=== PATIENT | female | born 1980 | race Caucasian/White ===

== ENCOUNTER 2024-07-28 18:41 | Emergency (ER) | payer MEDICAID ==
[~2024-07-28] VITALS: Ht 165.1 cm; Wt 71.8 kg
[2024-07-28] MEDS ORDERED: LORazepam 2 mg/ml vial IM ONE (19:30)
[2024-07-28 19:53] LABS: BASOPHILS # (AUTO) 0.1 X10'3 (0-0.2); BASOPHILS % (AUTO) 0.3 % (0-1); EOSINOPHILS % (AUTO) 0.2 % (0-6); HEMATOCRIT 39.6 % (35.0-45.0); HEMOGLOBIN 14.1 g/dl (12.0-16.0); LYMPHOCYTES # (AUTO) 1.7 X10'3 (1.1-4.8); LYMPHOCYTES % (AUTO) 8.3 % (21-51); MEAN CORPUSCULAR HEMOGLOBIN 30.8 PG (27.0-31.0); MEAN CORPUSCULAR HGB CONC 35.6 g/dL (33.0-36.5); MEAN CORPUSCULAR VOLUME 86.5 FL (78-98); MEAN PLATELET VOLUME 7.8 FL (7.4-10.4); MONOCYTES # (AUTO) 1.5 X10'3 (0-0.9); MONOCYTES % (AUTO) 7.3 % (2-12); NEUTROPHILS % (AUTO) 83.9 % (42-75); PLATELET COUNT 255 X10'3 (140-440); RED BLOOD COUNT 4.58 X10'6 (4.20-5.60); WHITE BLOOD COUNT 20.3 X10'3 (4.5-11.0)
[2024-07-28] MEDS: OLANZapine **IM** 10 mg inj. IM ONE (20:06)
[2024-07-28] MEDS: QUEtiapine 25mg tablet PO STA (20:06)
[2024-07-28 20:15] LABS: ALBUMIN 4.3 G/DL (3.4-5.0); ANION GAP 13 (8-16); BLOOD UREA NITROGEN 9 MG/DL (7-18); CALCIUM 9.2 MG/DL (8.5-10.1); CHLORIDE 98 MMOL/L (99-107); CREATININE 0.75 MG/DL (0.40-0.90); GLUCOSE 113 MG/DL (70-104); POTASSIUM 3.3 MMOL/L (3.5-5.1); SODIUM 131 MMOL/L (135-145); TOTAL CARBON DIOXIDE 19.9 MMOL/L (24-32); eCRCL 84 ML/MIN; eGFR 83 ML/MIN
[2024-07-28 20:18] LABS: ETHANOL < 10 MG/DL (<10)
[2024-07-29] MEDS: OLANZapine **IM** 10 mg inj. IM ONE (05:50)
[2024-07-29] MEDS: ziprasidone IM 20mg inj **IM only IM ONE (06:36)
[2024-07-29 07:04] LABS: BILIRUBIN,URINE NEGATIVE (Neg); CLARITY,URINE CLEAR (Clear); COLOR,URINE STRAW (Yellow); GLUCOSE, URINE NEGATIVE (Neg); KETONES,URINE NEGATIVE (Neg); LEUKOCYTE ESTERASE ,URINE NEGATIVE (Neg); NITRITES, URINE NEGATIVE (Neg); OCCULT BLOOD,URINE TRACE-INTACT (Neg); PROTEIN,URINE NEGATIVE (Neg); UROBILINOGEN,URINE 0.2 E.U/dL (0.2-1.0)
[2024-07-29 07:07] LABS: URINE HCG NEGATIVE (NEG)
[2024-07-29 07:11] LABS: UA COLLECTION TYPE CLN CATCH MIDSTREAM
[2024-07-29 07:14] LABS: BACTERIA,URINE FEW /HPF (Neg); MUCUS STRANDS NONE SEEN /LPF (Neg); RBC,URINE 0-2 /HPF (0-2); SQUAMOUS EPITHELIAL CELL,UR FEW /LPF (FEW); WBC,URINE NONE SEEN /HPF (0-4)
[2024-07-29 08:08] LABS: URINE AMPHETAMINE SCREEN POSITIVE (Neg); URINE BARBITUATE SCREEN NEGATIVE (Neg); URINE BENZODIAZEPINES SCREEN NEGATIVE (Neg); URINE CANNABINOID SCREEN POSITIVE (Neg); URINE COCAINE SCREEN NEGATIVE (Neg); URINE METHADONE SCREEN NEGATIVE (Neg); URINE OPIATE SCREEN NEGATIVE (Neg); URINE PHENCYCLIDINE SCREEN NEGATIVE (Neg)
[2024-07-29] MEDS: haloperidol lactate 5mg/ml inj IM ONE (14:08)
[2024-07-29] MEDS: diphenhydrAMINE 50 mg/ml inj IM ONE (14:09)
[2024-07-29] MEDS: quetiapine 100mg tablet PO STA (15:22)
[2024-07-29] MEDS ORDERED: BUSP10TA3 PO (18:58)
[2024-07-29] MEDS ORDERED: HYDR-3927 PO (18:58)
[2024-07-29] MEDS ORDERED: BENZ1TAB78 PO (18:59)
[2024-07-29] MEDS ORDERED: HALO2TAB PO (18:59)
[2024-07-29] MEDS ORDERED: BUSP5TAB3 PO (18:59)
[2024-07-29] MEDS ORDERED: BUPR-726 PO (18:59)
[2024-07-30 05:00] VITALS: BP 136/80; PULSE 86; RESP 16; TEMP 97.6; O2SAT 99
== END 2024-07-30 11:07 | disposition home or self-care (01) ==
LOC: ER 18:42
DX: R45.851 Suicidal ideations (principal); Z20.822 Contact with and (suspected) exposure to COVID-19; Z79.899 Other long term (current) drug therapy
CPT/HCPCS: 36415; 80048; 80305; 80320; 81001; 81025; 84145; 84443; 85025; 87811; 96372; 99285; J1200; J1630; J3486; J3490